=== PATIENT | female | born 1940 | race Native Hawaiian/Other Pacific Islander ===

== ENCOUNTER 2017-12-11 16:10 | Emergency (ER) | payer OTHER ==
[~2017-12-11] VITALS: Ht 162.6 cm; Wt 65.8 kg
[2017-12-11 16:10] VITALS: TEMP 97.7
[~2017-12-11 16:10] MED LIST: ALTARUSSIN100 MG/5 M PO; ARTIFICIAL TEAR1 OPTH; BISACODYL PO; BISCOLAX10 MG RE; CALCIUM CARB; CAPS0.024 TOP; DOCU100C10 PO; DONE5TAB PO; ENSURE ENLIV PO; ESCI10TA PO; HALO5INJ3 IM; HYDR5TAB9 PO; LORA2INJ21 INJ; MAGNSUS68 PO; MEMA10TA2 PO; METAMUCIL0.52 GM PO; METFORMIN HCL PO; MUCUS RELIEF400 M1 PO; NAMZARIC 28-101 CAP PO; PANTOPRAZOLE 40MG TA PO; QUET100T2 PO; QUET25TA2 PO; RISP1TAB PO; RISP25IN IM; TYLENOL325 MG PO
[2017-12-11 16:49] LABS: PLATELET COUNT 188 K/uL (152-353)
[2017-12-11 16:51] LABS: POTASSIUM 4.3 mmol/L (3.6-5.2)
[2017-12-11 17:41] VITALS: BP 137/38
[2017-12-11] MEDS ORDERED: RISP2TAB2 PO (22:36)
[2017-12-11] MEDS ORDERED: DONE5TAB PO (22:39)
[2017-12-11] MEDS ORDERED: QUET100T2 PO (22:47)
[2017-12-11] MEDS ORDERED: SITA50TA2 PO (22:48)
[2017-12-11] MEDS ORDERED: TUMS500 MG XX (23:24)
[2017-12-11] MEDS ORDERED: HALO5INJ3 IM (23:30)
[2017-12-11] MEDS ORDERED: SEROQUEL100 MG PO (23:33)
[2017-12-11] MEDS ORDERED: RISPERDAL IM (23:45)
[2017-12-11] MEDS ORDERED: RISP1TAB PO (23:50)
[2017-12-30] MEDS ORDERED: ESCI10TA PO (09:29)
[2017-12-30] MEDS ORDERED: ALUMSUS6 PO (09:29)
[2017-12-30] MEDS ORDERED: LYRICA50 MG PO (09:30)
[2017-12-30] MEDS ORDERED: RISP1TAB PO (09:31)
[2017-12-30] MEDS ORDERED: RISP50IN IM (09:31)
[2017-12-30] MEDS ORDERED: QUET25TA2 PO (09:32)
[2017-12-30] MEDS ORDERED: QUET300T PO (09:32)
[2017-12-30] MEDS ORDERED: MIRALAX 17GM PAK PO (09:33)
== END 2017-12-11 18:20 | disposition other institution (70) ==
LOC: ED 16:10
DX: F20.89 Other schizophrenia (principal); Z04.6 Encounter for general psychiatric examination, requested by authority
CPT/HCPCS: 36415; 80053; 81000; 85027; 93005; 99285